=== PATIENT | female | born 1990 | race Caucasian/White ===

== ENCOUNTER 2022-10-19 17:43 | Emergency (ER) | payer OTHER ==
[~2022-10-19] VITALS: Ht 152.4 cm; Wt 74.8 kg
[2022-10-19] MEDS ORDERED: TUSSIN DM 400-1 EACH PO (19:05)
[2022-10-19] MEDS ORDERED: DUI500 PO (19:05)
== END 2022-10-19 19:28 | disposition home or self-care (01) ==
LOC: ER 17:43
DX: J03.90 Acute tonsillitis, unspecified (principal)

== ENCOUNTER 2023-09-14 01:14 | Emergency (ER) | payer OTHER ==
[~2023-09-14] VITALS: Ht 167.6 cm; Wt 68.0 kg
[~2023-09-14 01:14] MED LIST: DUI500 PO; TUSSIN DM 400-1 EACH PO
[2023-09-14] MEDS ORDERED: KETOROLAC TROMETHAMINE 60 MG VIAL IM STA (04:43)
[2023-09-14] MEDS ORDERED: ORPHENADRINE CITRATE 30 MG/ML AMPUL IM STA (04:43)
[2023-09-14] MEDS ORDERED: NORFLEX100MG PO (05:31)
[2023-09-14] MEDS ORDERED: KETO10TA2 PO (05:31)
== END 2023-09-14 05:36 ==
LOC: ER 01:15
DX: M62.838 Other muscle spasm (principal)